=== PATIENT | female | born 1990 | race Caucasian/White ===

== ENCOUNTER 2020-02-25 11:13 | Emergency (ER) | payer OTHER ==
[2020-02-25 12:18] LABS: BASOPHIL 0.2 % (0-2); HCT 36.2 % (37.0-47.0); HGB 12.7 g/dl (12.5-16.0); LYMPHOCYTE 11.4 % (15-48); MCH 30.2 pg (25.0-31.0); MCHC 35.1 g/dL (32.0-36.0); MCV 86.2 fL (78.0-100.0); MONOCYTE 7.9 % (0-12); MPV 10.5 fL (6.0-9.5); NEUTROPHIL 78.7 % (41-80); NRBC 0; PLT 211 K/uL (150-400); RDW 13.4 % (11.5-14.0); WBC 13.5 K/uL (4.0-10.5)
[2020-02-25 12:41] LABS: FLU B NEGATIVE B (NEGATIVE B)
[2020-02-25 12:42] LABS: MONOSPOT (MONONUCLEOSIS) NEGATIVE (NEGATIVE)
[2020-02-25 12:47] LABS: BUN/CREAT RATIO (CALC) 13.8 RATIO; CREATININE 0.65 mg/dL (0.51-0.95); POTASSIUM 3.7 mmol/L (3.5-5.1)
[2020-02-25] MEDS ORDERED: HYDROCODONE-ACE10 ML PO (13:17)
== END 2020-02-25 13:47 | disposition home or self-care (01) ==
LOC: FER 11:13
PROVIDERS: Emergency Medicine
DX: J02.0 Streptococcal pharyngitis (principal); F17.290 Nicotine dependence, other tobacco product, uncomplicated; Z86.16 Personal history of COVID-19
CPT/HCPCS: 36415; 80048; 85025; 86308; 87804; 87880; 87899; 96372; 99283; J0561; J1040; J1885